=== PATIENT | male | born 1985 | race Caucasian/White ===

== ENCOUNTER 2018-05-02 18:32 | Emergency (ER) | payer SELFPAY | END 2018-05-02 22:18 | disposition E | LOC: ED 18:32 | DX: S09.90XA Unspecified injury of head, initial encounter (principal); I46.9 Cardiac arrest, cause unspecified; V87.7XXA Person injured in collision between other specified motor vehicles (traffic), initial encounter; Y93.89 Activity, other specified; Y92.413 State road as the place of occurrence of the external cause; Y99.8 Other external cause status ==